=== PATIENT | female | born 1950 | race Caucasian/White ===

== ENCOUNTER 2017-04-10 10:09 | Emergency (ER) | payer MEDICARE ==
[~2017-04-10] VITALS: Ht 157.5 cm; Wt 49.9 kg
--- NOTE | 2017-04-10 10:15 | NUR ---
BBRA 878 C/O L ANKLE PAIN S/P TRIP AND FALL AFTER MISSING A STEP LAST NIGHT. DENIES LOC, DENIES HEAD/NECK PAIN. PT AAOX3. MD AT BS FOR EVAL. VSS. SAFETY AND COMFORT MEASURES PROVIDED. WILL MONITOR.
--- NOTE | 2017-04-10 10:23 | NUR ---
ASSEMBLY PERSON AT BEDSIDE
--- NOTE | 2017-04-10 11:10 | NUR ---
KATHERINE WATKINS AT FOR SPLINT AND CRUTCHES. TEACHINGS/TRAINING PROVIDED. ALL QUESTIONS ANSWERED.
--- NOTE | 2017-04-10 11:20 | NUR ---
Patient discharged to home in stable condition. Written and verbal after care instructions given. Patient verbalizes understanding of instruction.
[2017-04-10 11:24] VITALS: BP 105/71
== END 2017-04-10 11:44 | disposition home or self-care (01) ==
LOC: ER 10:13
DX: S92.352A Displaced fracture of fifth metatarsal bone, left foot, initial encounter for closed fracture (principal); W10.8XXA Fall (on) (from) other stairs and steps, initial encounter; Y93.01 Activity, walking, marching and hiking; Y92.89 Other specified places as the place of occurrence of the external cause; Y99.8 Other external cause status
CPT/HCPCS: 73610-TC; 73630-TC; A4606; Z7610

== ENCOUNTER 2018-02-09 13:08 | Emergency (ER) | payer BC, MEDICARE ==
[~2018-02-09] VITALS: Ht 154.9 cm; Wt 52.6 kg
[2018-02-09] MEDS ORDERED: ONDANSETRON HCL/PF 4 MG/2 ML VIAL ONE (13:50)
[2018-02-09] MEDS ORDERED: KETOROLAC TROMETHAMINE 15 MG/ML VIAL ONE (13:50)
[2018-02-09] MEDS ORDERED: KETOROLAC TROMETHAMINE INJ 30 MG/ML VIAL IV ONE (14:00)
[2018-02-09] MEDS ORDERED: ONDANSETRON HCL/PF 4 MG/2 ML VIAL IV ONE (14:00)
[2018-02-09] MEDS ORDERED: IV NS 0.9% 1,000 ML BAG IV ONE (14:00)
[2018-02-09 14:45] VITALS: BP 122/77
--- NOTE | 2018-02-09 14:57 | NUR ---
IV removed. Catheter intact and site benign. Pressure and 4x4 applied to site. No bleeding noted.Patient discharged to home in stable condition. Written and verbal after care instructions given. Patient verbalizes understanding of instruction.
== END 2018-02-09 14:57 | disposition home or self-care (01) ==
LOC: ER 13:11
DX: R11.2 Nausea with vomiting, unspecified (principal); F41.9 Anxiety disorder, unspecified; E03.8 Other specified hypothyroidism
CPT/HCPCS: 93005; 96361; 96374; 96375; 99284; A4606; J1885; J2405; J7030; Z7610